=== PATIENT | male | born 1960 | race Caucasian/White ===

== ENCOUNTER 2018-09-20 00:20 | Observation (INO) ==
--- NOTE | 2018-09-20 00:28 | Emergency Department Note ---
Disposition Clinical Impression: Renal colic on right side Acute appendicitis Qualifiers: Acute appendicitis type: with localized peritonitis Appendicitis gangrene presence: without gangrene Appendicitis perforation presence: without perforati on Appendicitis abscess presence: without abscess Qualified Code(s): K35.30 - Acute appendicitis with localized peritonitis, without perforation or gangrene Disposition: Admitted As Inpatient Condition: Fair Referrals: NONE,PCP [Primary Care Provider] - Forms: ED Satisfaction Letter, Work/School Release Time of Disposition: 02:14 Abdominal Pain HPI - General Chief Complaint: ED Abdominal Pain Stated Complaint: Abd pain LL Time Seen by Provider: 09/20/18 00:21 Source: patient Mode of arrival: ambulatory Limitations: no limitations Nursing Notes Reviewed: Yes Vital Signs Reviewed: Yes - History of Present Illness HPI Narrative: 58-year-old male without significant past medical history, no medications no known drug allergies presenting for a 4 hour history of sudden onset severe left lower quadrant abdominal pain. The patient states that he was sitting down watching television at approximately 8 PM this evening when he had the sudden onset of severe left lower quadrant abdominal pain. Patient states for approximately one 8 months that he has been having intermittent severe right lower quadrant pain which has not been worked up by a physician. Patient states the pain is currently 10 out of 10 in nature and states that it makes him feel as though he is going to vomit. Patient denies any other concerns or complaints at this time. Upon my initial evaluation patient is sitting upright in hospital bed he is noticeably uncomfortable and in mild distress due to pain. Patient has trashcan from home sitting next to him, patient is otherwise not pale, not diaphoretic noncyanotic. We will initiate abdominal workup at this point with CT scan of the abdomen, abdominal labs Dilaudid and Zofran for the management of patient's symptoms. Patient verbalizes understanding and agreement this plan and is hemodynamically stable at this time. Pt Subjective Complaint: abdominal pain Onset (ago): hour(s) Consistency: constant Location: LLQ Pain Scale: 9 Quality: stabbing, sharp Radiation: none Migration to: no migration Improves with: nothing Worsens with: nothing Associated symptoms: Reports: nausea Treatments prior to arrival: none - Related Data Home Medications Medication Instructions Recorded Confirmed No Known Home Drugs 09/20/18 09/20/18 Allergies Allergy/AdvReac Type Severity Reaction Status Date / Time No Known Allergies Allergy Verified 09/20/18 00:47 Review of Systems: *See History of Present Illness for more detail Constitutional: Denies: fever, chills Cardiovascular: Denies: chest pain Respiratory: Denies: dyspnea, cough, hemoptysis Gastrointestinal: Admits: abdominal pain, nausea, denies: vomiting, diarrhea, constipation, hematemesis, melena, hematochezia Genitourinary: Denies: hematuria Musculoskeletal: Denies: back pain, neck pain Neurological: Denies: headache, weakness, lightheadedness/dizziness, numbness, paresthesias, difficulty with ambulation. Endocrine: Denies: fatigue All systems ED: reviewed and negative except as stated. Review of Systems: As Per HPI Abdominal Pain PMH - Past Medical History Medical history: Reports: no medical history Male Surgical History: Reports: no surgical history - Social History Smoking status: Never smoker Alcohol use: Reports: none Drug use: Reports: none Physical Exam Constitutional: No acute distress, [id number], engaged to conversation, speech is fluid, answers questions appropriately Neuro: GCS 15, no overt focal neurological deficits Head: Atraumatic, normocephalic Eyes: Pupils equal, round and reactive to light, no scleral icterus, no conjunctival injection Neck: Trachea midline without deviation. Anterior neck is supple without swelling. *Chest: Symmetric chest wall rise *Heart: Cardiac rhythm and rate are regular with S1 and S2 , no S3 or S4 appreciated, no murmurs, gallops, rubs, or clicks. *Lungs: Lungs are clear to auscultation bilaterally, without accessory muscle use or prolonged expiratory phase. No wheezes, rhonchi or stridor appreciated. Abdomen: Patient with pain to palpation in the left lower quadrant. Otherwise Abdomen is flat, soft to palpation, normal bowel sounds. No abdominal bruit auscultated. Non-distended, non-rigid, no organomegaly, no ascites appreciated. No pulsatile mass, no guarding to palpation in all four quadrants, no rebound Extremities: Normal capillary refill without evidence of pedal edema, joint swelling or erythema. Pulses/motor intact in all 4 extremities. Psychiatric exam: Patient displays a normal affect and mood for the environment. No overt signs of hallucination. Integumentary: warm, dry, intact, normal color. No rash, cyanosis, diaphoresis, erythema, or pallor - General Limitations: no limitations General appearance: alert, in no apparent distress Course Course Narrative: CT scan abdomen and pelvis, abdominal labs, Dilaudid Zofran IV fluids. - Reevaluation(s) Reevaluation #1: Patient's CT scan of the abdomen shows a left ureter 7 mm obstructing stone. There is also uncomplicated appendicitis noted on the CT scan. Patient with acute kidney injury to laboratory. Patient be admitted to surgical medicine service for management of appendicitis. Urology consult is also placed at this time. Vital Signs Temperature 98.2 F 09/20/18 00:24 Pulse Rate 74 09/20/18 00:24 Respiratory Rate 18 09/20/18 00:24 Blood Pressure 173/82 09/20/18 00:24 O2 Sat by Pulse Oximetry 98 09/20/18 00:24 Temperature 98.2 F 09/20/18 00:24 Pulse Rate 74 09/20/18 01:57 Respiratory Rate 20 09/20/18 01:57 Blood Pressure 155/102 09/20/18 01:57 O2 Sat by Pulse Oximetry 98 09/20/18 01:57 Oxygen Delivery Oxygen Delivery Room Air Abdominal Pain - MDM Narrative Medical decision making narrative: Patient's pain has been well managed here in the ED. Patient with findings of a 7 mm obstructing renal lithiasis in the left ureter, 11 mm appendix with inflammatory response suggestive of acute uncomplicated appendicitis. Patient admitted to surgical list service under Dr. Loy Lyons. The patient is hemodynamically stable time of admission. - Lab Data Lab results reviewed: Yes I reviewed the patient's lab results. Result diagrams: 09/20/18 00:37 09/20/18 00:37 Lab Results 09/20/18 09/20/18 09/20/18 Range/Units 00:33 00:37 00:37 WBC 10.5 (4.3-11.1) K/mcL RBC 4.93 (4.19-5.50) M/mcL Hgb 14.0 (12.9-16.9) g/dL Hct 42.2 (37.5-50.1) % MCV 85.6 (83.0-100.0) fL MCH 28.4 (28.0-33.3) pg MCHC 33.2 (31.6-35.5) g/dL RDW 12.4 (11.5-14.5) % Plt Count 235 (140-400) K/mcL MPV 9.5 (9.4-12.4) fL Immature Gran % 0.5 (0-4) % Seg Neutrophils % 82.6 % Lymphocytes % 9.2 % Monocytes % 6.2 % Eosinophils % 0.8 % Basophils % 0.7 % Neutrophils # 8.7 (1.6-8.9) K/mcL Lymphocytes # 1.0 (0.6-4.6) K/mcL Monocytes # 0.7 (0.0-1.3) K/mcL Eosinophils # 0.1 (0.0-0.6) K/mcL Basophils # 0.1 (0.0-0.2) K/mcL Sodium 141 (136-145) mEq/L Potassium 3.8 (3.5-5.1) mEq/L Chloride 104 (98-107) mEq/L Carbon Dioxide 27 (23-29) mEq/L BUN 22 H (6-20) mg/dL Creatinine 1.31 H (0.70-1.30) mg/dL Est GFR ( Amer) > 60 (> 60) Est GFR (Non-Af Amer) 57 L (> 60) BUN/Creatinine Ratio 17 (6-26) Glucose 132 H (70-105) mg/dL Calculated Osmolality 297 (280-300) Calcium 9.5 (8.6-10.3) mg/dL Total Bilirubin 0.5 (0.3-1.0) mg/dL Direct Bilirubin 0.1 (0.0-0.2) mg/dL Indirect Bilirubin 0.4 (0.0-1.2) mg/dL AST 17 (13-39) Units/L ALT 14 (7-52) Units/L Alkaline Phosphatase 86 (34-104) Units/L Serum Total Protein 7.6 (6.4-8.9) g/dL Albumin 4.7 (3.5-5.7) g/dL Globulin 2.9 (2.4-3.5) g/dL Albumin/Globulin Ratio 1.6 (1.1-2.2) Amylase 40 (29-103) Units/L Lipase 15 (11-82) Units/L Urine Color Yellow (Yellow) Urine Clarity Clear (Clear) Urine pH 5.0 (5.0-8.0) pH Units Ur Specific [place] 1.028 H (1.010-1.025) Urine Protein Trace (Neg-Trace) mg/dL Urine Glucose (UA) Normal (Normal) mg/dL Urine Ketones Negative (Negative) mg/dL Urine Blood Large H (Negative) Urine Nitrite Negative (Negative) Urine Bilirubin Negative (Negative) Urine Urobilinogen Normal (Normal) mg/dL Ur Leukocyte Esterase Negative (Negative) Urine Microscopic RBC 5-15 H (0-3) per hpf Urine Microscopic WBC 0-3 (0-3) per hpf Ur Squamous Epith Cells Few (None-Few) per lpf Urine Bacteria Few (None-Few) per hpf Urine Mucus Moderate H (Few) Urine Yeast Few H (None Seen) per hpf Ur Culture Indicated? YES A (NO) - Radiology Data Radiology results reviewed: Yes I reviewed the patient's radiology results. Abdomen/Pelvis CT 09/20/18 00:30 IMPRESSION: 1. Acute uncomplicated appendicitis. 2. 7 mm obstructive stone in the proximal left ureter leads to mild left hydronephrosis. D/ / Fabiola Newell MD / Fabiola Newell MD Interpreting Provider: Fabiola Newell MD
[2018-09-20] MEDS ORDERED: Ondansetron ODT 4 MG TAB.RAPDIS SL ONE (00:30)
[2018-09-20] MEDS ORDERED: *HR* HYDROmorphone (PF) 1 MG/ML SYRINGE IVP ONE ×2 (00:35→01:47)
--- NOTE | 2018-09-20 00:45 | Emergency Department Note ---
Disposition Clinical Impression: Renal colic on right side Disposition: Still a Patient Forms: ED Satisfaction Letter, Work/School Release Time of Disposition: 00:45 General Adult HPI - General Chief complaint: ED Abdominal Pain Stated complaint: Abd pain LL Time Seen by Provider: 09/20/18 00:21 Source: patient Limitations: no limitations Nursing Notes Reviewed: Yes Vital Signs Reviewed: Yes - History of Present Illness HPI Narrative: Attestation note: Patient was seen with the emergency medicine resident/nurse practitioner/physician personal assistant/transitional resident/medical student: Dr. Dameon Mason. I was present for the significant portions of the performance and interpretation of procedures and EKGs. I have personally performed a face to face evaluation on this patient. I have reviewed and agree with history and physical examination patient management and disposition. Briefly: 58-year-old male no prior history of stones right-sided flank pain writhing appears consistent with renal colic abdomen surgically benign he is hypertensive moderate distress getting IV antiemetics 1 mg IV Dilaudid getting a CT scan screening labs and urinalysis. Disposition pending Pain Scale: 9 - Related Data Allergies Allergy/AdvReac Type Severity Reaction Status Date / Time No Known Allergies Allergy Verified 09/20/18 00:21 Past Medical History - Past Medical History Medical history: Reports: no medical history - Social History Smoking Status: Never smoker Smokeless Tobacco Status: No Alcohol use: Reports: none Drug use: Reports: none Physical Exam - General Limitations: no limitations General appearance: alert, in no apparent distress Course Vital Signs Temperature 98.2 F 09/20/18 00:24 Pulse Rate 74 09/20/18 00:24 Respiratory Rate 18 09/20/18 00:24 Blood Pressure 173/82 09/20/18 00:24 O2 Sat by Pulse Oximetry 98 09/20/18 00:24 Temperature 98.2 F 09/20/18 00:24 Pulse Rate 74 09/20/18 00:24 Respiratory Rate 18 09/20/18 00:24 Blood Pressure 173/82 09/20/18 00:24 O2 Sat by Pulse Oximetry 98 09/20/18 00:24 Oxygen Delivery Oxygen Delivery Room Air
[2018-09-20 00:46] LABS: Bilirubin,Urine Negative (Negative); Blood,Urine Large (Negative); Clarity,Urine Clear (Clear); Color,Urine Yellow (Yellow); Glucose,Urine (UA) Normal (Normal); Ketones,Urine Negative (Negative); Leukocyte Esterase,Urine Negative (Negative); Nitrite,Urine Negative (Negative); Protein,Urine Trace mg/dL (Neg-Trace); Specific Gravity,Urine 1.028 (1.010-1.025); Urobilinogen,Urine Normal (Normal)
[2018-09-20 00:47] LABS: Basophils # 0.1 K/mcL (0.0-0.2); Basophils % 0.7 %; Eosinophils # 0.1 K/mcL (0.0-0.6); Eosinophils % 0.8 %; Hematocrit 42.2 % (37.5-50.1); Immature Granulocytes % 0.5 % (0-4); Lymphocytes % 9.2 %; Mean Corpuscular HGB Conc 33.2 g/dL (31.6-35.5); Mean Corpuscular Hemoglobin 28.4 pg (28.0-33.3); Mean Corpuscular Volume 85.6 fL (83.0-100.0); Mean Platelet Volume 9.5 fL (9.4-12.4); Monocytes # 0.7 K/mcL (0.0-1.3); Monocytes % 6.2 %; Neutrophils # 8.7 K/mcL (1.6-8.9); Platelet Count 235 K/mcL (140-400); Red Blood Count 4.93 M/mcL (4.19-5.50); Red Cell Distribution Width 12.4 % (11.5-14.5); Segmented Neutrophils % 82.6 %; White Blood Count 10.5 K/mcL (4.3-11.1)
[2018-09-20 00:57] LABS: Bacteria,Urine Few per hpf (None-Few); Mucus,Urine Moderate (Few); WBC,Urine 0-3 per hpf (0-3); Yeast,Urine Few per hpf (None Seen)
[2018-09-20 00:58] LABS: Squamous Epithelial Cell,Urine Few per lpf (None-Few)
[2018-09-20 01:09] LABS: Alanine Aminotransferase 14 Units/L (7-52); Albumin 4.7 g/dL (3.5-5.7); Albumin/Globulin Ratio 1.6 (1.1-2.2); Alkaline Phosphatase 86 Units/L (34-104); Amylase 40 Units/L (29-103); Aspartate Amino Transferase 17 Units/L (13-39); BUN/Creatinine Ratio 17 (6-26); Bilirubin,Direct 0.1 mg/dL (0.0-0.2); Bilirubin,Indirect 0.4 mg/dL (0.0-1.2); Bilirubin,Total 0.5 mg/dL (0.3-1.0); Blood Urea Nitrogen 22 mg/dL (6-20); Calcium 9.5 mg/dL (8.6-10.3); Carbon Dioxide 27 mEq/L (23-29); Chloride 104 mEq/L (98-107); Globulin 2.9 g/dL (2.4-3.5); Glucose 132 mg/dL (70-105); Lipase 15 Units/L (11-82); Osmolality,Calculated 297 (280-300); Potassium 3.8 mEq/L (3.5-5.1); Sodium 141 mEq/L (136-145); Total Protein 7.6 g/dL (6.4-8.9); eGFR For African Americans > 60 (> 60); eGFR For Non-African Americans 57 (> 60)
[2018-09-20] MEDS ORDERED: Ondansetron 4 MG/2 ML VIAL IVP PRN ×2 (03:02→15:43)
[2018-09-20] MEDS: 0.9 % Sodium Chloride 1,000 ML IVC SCH ×3 (03:23→16:20)
[2018-09-20] MEDS: Acetaminophen IV 1,000 MG/100 ML INFUS..BTL IVPB SCH ×4 (05:26→23:55)
[2018-09-20] MEDS: Piperacillin/Tazobactam 3.375 GM in 0.9 % Sodium Chloride Mini Bag 100 ML IVPB SCH ×4 (05:51→23:56)
--- NOTE | 2018-09-20 05:55 | Acute Care Surgery H&P ---
Date of Encounter: 09/20/18 Time of Encounter: 05:00 Assessment and Plan (1) Acute appendicitis Current Visit: Yes Status: Acute The assessment and plan as outlined above was discussed with the patient and/or family members who expressed understanding and agreement. All questions were answered. Pt's diagnosis of acute appendicitis is discussed. Laparoscopic Appendectomy is recommended. Procedure for the surgery, risks and benefits are discussed in detail. Possible known complications for Laparoscopic Appendectomy are bleeding, infection, ureter or bladder injury, small intestine or colon injury, stroke, DVT/PE, CO or . Pt understands these risks, which in this case are . Pt wishes to proceed with surgery as soon as possible. Informed consent is obtained. Pt condition is stable. Surgery is scheduled. IV abx ordered. Qualifiers: Acute appendicitis type: with localized peritonitis Appendicitis gangrene presence: without gangrene Appendicitis perforation presence: without perforation Appendicitis abscess presence: without abscess Qualified Code(s): K35.30 - Acute appendicitis with localized peritonitis, without perforation or gangrene History of Present Illness Chief complaint: abdominal pain HPI: This 58 y/o male pt presents to [facility] ED c/o severe abdominal pain. Pt reports pain is predominantly in LLQ rather then RLQ. Pain radiates to RLQ. However, pt also c/o pain in that was suprapubic. Pt reports pain has been present for 1-2 days. He states that the intermittent low grade pain worsened to the point of intolerence. That is when he presented to ED. Now, the pain is constant and severe RLQ. Pt reports nausea without vomiting. Pt denies hematemesis or coffee ground emesis. Pt reports flatus and BM. BM have become loose today. Pt denies hematochezia or melena. Reports decreased appetite. Denies fever. Past Med Surg Social Fam HX - Past Medical History Medical history: no medical history - Social History Smoking Status: Never smoker Smokeless Tobacco Status: No Alcohol use: none Drug use: none Medications and Allergies No Known Home Drugs 09/20/18 [History] Allergy/AdvReac Type Severity Reaction Status Date / Time No Known Allergies Allergy Verified 09/20/18 00:47 Review of Systems All systems PM: The remainder of the systems were reviewed and are negative - Constitutional as per HPI, anorexia, no excessive sweating, no fatigue, no fever(s), no night sweats, no weakness - EENT Nose, mouth and throat: dry mouth, no dysphagia, no nasal congestion, no nasal discharge, no sinus pain, no sinus pressure, no sore throat - Cardiovascular no chest pain, no diaphoresis, no dyspnea, no edema - Respiratory no cough, no dyspnea, no wheezing - Gastrointestinal abdominal pain, nausea, no bloating, no constipation, no diarrhea, no vomiting - Genitourinary flank pain, no dysuria, no urinary frequency - Musculoskeletal no back pain, no joint swelling, no limited range of motion, no neck pain - Integumentary no dry skin, no pruritus, no rash, no wounds, no jaundice - Neurological no confusion, no dizziness, no weakness - Psychiatric no anxiety, no confusion, no depression - Endocrine no fatigue - Hematologic/Lymphatic no easy bleeding, no easy bruising General Surgery Exam Initial Vital Signs Temp Pulse Resp BP Pulse Ox 98.2 F 74 18 173/82 98 09/20/18 00:24 09/20/18 00:24 09/20/18 00:24 09/20/18 00:24 09/20/18 00:24 - General physical appearance well nourished, no distress, moderate pain. negative: jaundice - Eyes PERRL, normal ocular movement. negative: icteric - ENT no congestion, dry mucosa. negative: nasal discharge - Neck no masses, trachea midline, no lymphadectomy, no venous distension - Respiratory normal respiratory effort, clear to auscultation - Cardiovascular Cardiovascular exam: Present: RRR. Absent: JVD - Abdomen Abdomen general surgery: Present: bowel sounds present, soft, tender. Absent: distended Abdominal Tenderness: Present: RLQ - Genitourinary Present: normal penis with no external lesions - Integumentary Integumentary general surgery: Present: warm and dry - Neurologic Present: CN 2-12 grossly intact, normal coordination - Musculoskeletal Present: normal posture - Psychiatric Psychiatric general surgery: Present: A&Ox3, appropriate Results - Labs 09/20/18 00:37 09/20/18 00:37 Abnormal lab results BUN 22 mg/dL (6-20) H 09/20/18 00:37 Creatinine 1.31 mg/dL (0.70-1.30) H 09/20/18 00:37 Est GFR (Non-Af Amer) 57 (> 60) L 09/20/18 00:37 Glucose 132 mg/dL (70-105) H 09/20/18 00:37 POC Glucose 126 mg/dL (70-99) H 09/20/18 05:02 Ur Specific [place] 1.028 (1.010-1.025) H 09/20/18 00:33 Urine Blood Large (Negative) H 09/20/18 00:33 Urine Microscopic RBC 5-15 per hpf (0-3) H 09/20/18 00:33 Urine Mucus Moderate (Few) H 09/20/18 00:33 Urine Yeast Few per hpf (None Seen) H 09/20/18 00:33 Ur Culture Indicated? YES (NO) A 09/20/18 00:33 Diabetes panel 09/20/18 Range/Units 00:37 Sodium 141 (136-145) mEq/L Potassium 3.8 (3.5-5.1) mEq/L Chloride 104 (98-107) mEq/L Carbon Dioxide 27 (23-29) mEq/L BUN 22 H (6-20) mg/dL Creatinine 1.31 H (0.70-1.30) mg/dL Glucose 132 H (70-105) mg/dL Calcium 9.5 (8.6-10.3) mg/dL AST 17 (13-39) Units/L ALT 14 (7-52) Units/L Alkaline Phosphatase 86 (34-104) Units/L Albumin 4.7 (3.5-5.7) g/dL Calcium panel 09/20/18 Range/Units 00:37 Calcium 9.5 (8.6-10.3) mg/dL Albumin 4.7 (3.5-5.7) g/dL Pituitary panel 09/20/18 Range/Units 00:37 Sodium 141 (136-145) mEq/L Potassium 3.8 (3.5-5.1) mEq/L Chloride 104 (98-107) mEq/L Carbon Dioxide 27 (23-29) mEq/L BUN 22 H (6-20) mg/dL Creatinine 1.31 H (0.70-1.30) mg/dL Glucose 132 H (70-105) mg/dL Calcium 9.5 (8.6-10.3) mg/dL Adrenal panel 09/20/18 Range/Units 00:37 Sodium 141 (136-145) mEq/L Potassium 3.8 (3.5-5.1) mEq/L Chloride 104 (98-107) mEq/L Carbon Dioxide 27 (23-29) mEq/L BUN 22 H (6-20) mg/dL Creatinine 1.31 H (0.70-1.30) mg/dL Glucose 132 H (70-105) mg/dL Calcium 9.5 (8.6-10.3) mg/dL Total Bilirubin 0.5 (0.3-1.0) mg/dL AST 17 (13-39) Units/L ALT 14 (7-52) Units/L Alkaline Phosphatase 86 (34-104) Units/L Albumin 4.7 (3.5-5.7) g/dL All other labs normal. - Imaging Abdominal x-ray: image reviewed (acute appendicitis) CT scan - chest: image reviewed
--- NOTE | 2018-09-20 07:00 | Urology - Consult Note ---
Date of Encounter: 09/20/18 Time of Encounter: 06:58 - Assessment and Plan (1) Ureteral stone with hydronephrosis Current Visit: Yes Status: Acute Assessment and plan: I personally reviewed the CT scan and agree that there is a 7-8 mm proximal left ureteral calculi with hydronephrosis and stranding in the kidney. This is likel y the source of his acute pain. Patient is scheduled to undergo a laparoscopic appendectomy today. We will place a ureteral stent during the procedure. Planned procedure is a cystoscopy with left retrograde pyelogram and left ureteral stent placement. Patient understands the indication for the procedure. He will require a staged ESWL or ureteroscopic stone extraction. Patient understands the risks the procedure which includes injury to the urinary tract, infection, stent discomfort, and need for follow-up surgery (2) Acute renal insufficiency Current Visit: Yes Status: Acute Assessment and plan: Likely from the obstructing ureteral stone. Should resolve with the stent. Avoid NSAIDs (3) Flank pain Current Visit: Yes Status: Acute Assessment and plan: Hopefully will improve with ureteral stent placement Urology CN:KIMBERLY Consult date: 09/20/18 Reason for consult Urology: Hydronephrosis History of present illness: 58-year-old male with no history of kidney stones. Presents to emergency room with severe left flank pain. He states he has been experiencing right-sided abdominal pain for at least a few weeks. No high fever. He went to the emergency room because he was not sure what the left flank discomfort was from. No gross hematuria. Positive nausea. Denies family history of kidney stones. CT scan revealed acute appendicitis and a left proximal 7 mm obstructing ureteral calculi Past Med Surg Social Fam HX - Past Medical History Medical history: no medical history - Social History Smoking Status: Never smoker Smokeless Tobacco Status: No Alcohol use: none Drug use: none Medications and Allergies No Known Home Drugs 09/20/18 [History] Allergy/AdvReac Type Severity Reaction Status Date / Time No Known Allergies Allergy Verified 09/20/18 00:47 Review of Systems - Constitutional fatigue, no fever(s) - EENT Nose, mouth and throat: no dizziness - Cardiovascular no chest pain - Respiratory no cough - Gastrointestinal abdominal pain, nausea - Genitourinary flank pain, no hematuria - Musculoskeletal back pain - Integumentary no erythema - Neurological no confusion - Psychiatric no anxiety - Hematologic/Lymphatic no easy bleeding - Allergic/Immunologic no throat swelling Exam Initial Vital Signs Temp Pulse Resp BP Pulse Ox 98.2 F 74 18 173/82 98 09/20/18 00:24 09/20/18 00:24 09/20/18 00:24 09/20/18 00:24 09/20/18 00:24 - General physical appearance Present: well developed, no distress, moderate pain - Eyes Present: PERRL, conjunctiva is clear - ENT Present: normal nares, no congestion - Neck Present: no masses, no lymphadenopathy - Respiratory Present: normal respiratory effort - Cardiovascular Cardiovascular exam IM: RRR - Abdomen Abdomen: Present: soft, tender, suprapubic tenderness - Integumentary Present: no rash, no growths, no abnormal pigmentation - Neurologic Present: normal coordination. Absent: disoriented, confused - Additional Findings Significant left CVA tenderness Urology Results - Labs 09/20/18 00:37 09/20/18 00:37 Abnormal lab results BUN 22 mg/dL (6-20) H 09/20/18 00:37 Creatinine 1.31 mg/dL (0.70-1.30) H 09/20/18 00:37 Est GFR (Non-Af Amer) 57 (> 60) L 09/20/18 00:37 Glucose 132 mg/dL (70-105) H 09/20/18 00:37 POC Glucose 126 mg/dL (70-99) H 09/20/18 05:02 Ur Specific [place] 1.028 (1.010-1.025) H 09/20/18 00:33 Urine Blood Large (Negative) H 09/20/18 00:33 Urine Microscopic RBC 5-15 per hpf (0-3) H 09/20/18 00:33 Urine Mucus Moderate (Few) H 09/20/18 00:33 Urine Yeast Few per hpf (None Seen) H 09/20/18 00:33 Ur Culture Indicated? YES (NO) A 09/20/18 00:33 Diabetes panel 09/20/18 Range/Units 00:37 Sodium 141 (136-145) mEq/L Potassium 3.8 (3.5-5.1) mEq/L Chloride 104 (98-107) mEq/L Carbon Dioxide 27 (23-29) mEq/L BUN 22 H (6-20) mg/dL Creatinine 1.31 H (0.70-1.30) mg/dL Glucose 132 H (70-105) mg/dL Calcium 9.5 (8.6-10.3) mg/dL AST 17 (13-39) Units/L ALT 14 (7-52) Units/L Alkaline Phosphatase 86 (34-104) Units/L Albumin 4.7 (3.5-5.7) g/dL Calcium panel 09/20/18 Range/Units 00:37 Calcium 9.5 (8.6-10.3) mg/dL Albumin 4.7 (3.5-5.7) g/dL Pituitary panel 09/20/18 Range/Units 00:37 Sodium 141 (136-145) mEq/L Potassium 3.8 (3.5-5.1) mEq/L Chloride 104 (98-107) mEq/L Carbon Dioxide 27 (23-29) mEq/L BUN 22 H (6-20) mg/dL Creatinine 1.31 H (0.70-1.30) mg/dL Glucose 132 H (70-105) mg/dL Calcium 9.5 (8.6-10.3) mg/dL Adrenal panel 09/20/18 Range/Units 00:37 Sodium 141 (136-145) mEq/L Potassium 3.8 (3.5-5.1) mEq/L Chloride 104 (98-107) mEq/L Carbon Dioxide 27 (23-29) mEq/L BUN 22 H (6-20) mg/dL Creatinine 1.31 H (0.70-1.30) mg/dL Glucose 132 H (70-105) mg/dL Calcium 9.5 (8.6-10.3) mg/dL Total Bilirubin 0.5 (0.3-1.0) mg/dL AST 17 (13-39) Units/L ALT 14 (7-52) Units/L Alkaline Phosphatase 86 (34-104) Units/L Albumin 4.7 (3.5-5.7) g/dL All other labs normal. Consult Discharge Plan - Plan Referrals: NONE,PCP [Primary Care Provider] -
--- NOTE | 2018-09-20 11:50 | Anesthesia Evaluation PreOp ---
Date of Encounter: 09/20/18 Time of Encounter: 12:25 - Past History Planned Operation: lap appy, ureteral stent placement Cardiac History: Denies any Significant Hx Pulmonary History: Denies Any Significant HX VENEER SORTER History: Denies Any Significant HX Other Medical History: Denies Any Significant HX Anesthesia History: No Prior Anesthetic Complications Alcohol Use: none Drug use: none Medications and Allergies No Known Home Drugs 09/20/18 [History] Allergy/AdvReac Type Severity Reaction Status Date / Time No Known Allergies Allergy Verified 09/20/18 00:47 - Meds/Allergy Pre-op Review Medications Reviewed: Yes Allergies Reviewed: Yes Beta Blockers on Current Med List: No Anesthesia Results - Labs 09/20/18 00:37 09/20/18 00:37 Anesthesia Exam Selected Entries 09/20/18 11:44 Temperature 99.7 F H Pulse Rate 85 Respiratory Rate 16 Blood Pressure 129/74 O2 Sat by Pulse Oximetry 97 Weight: 90 kg. BMI 29 NPO (# of Hours): over 8 hours - HEENT Pupil (Motor): Pupils equal Mallampati: II Teeth: Normal Oral Opening: Greater than 3 - Cardiac Rhythm: Regular Murmur: None - Pulmonary Breath Sounds: bilateral Clear Respiratory Effort: Symmetrical Anesthesia Assess/Plan ASA Score: 1, E Level of consciousness: Cooperative Anesthetic Plan: General Monitoring Plan: Standard Monitors Recovery Plan: PACU (Discussed GA, risks. Agreed to proceed.)
[2018-09-20] MEDS ORDERED: Acetaminophen IV 1,000 MG/100 ML INFUS..BTL ONE (13:04)
[2018-09-20] MEDS ORDERED: *HR* Midazolam HCl 2 MG/2 ML VIAL ONE (13:10)
[2018-09-20] MEDS ORDERED: *HR* FentaNYL (PF) 100 MCG/2 ML VIAL ONE (13:10)
[2018-09-20] MEDS ORDERED: *HR* Propofol 200 MG/20 ML VIAL IVP ONE (13:10)
[2018-09-20] MEDS ORDERED: Lidocaine -MPF 2% 2 ML VIAL ONE (13:10)
[2018-09-20] MEDS ORDERED: *HR* Rocuronium Bromide 50 MG/5 ML VIAL ONE (13:10)
[2018-09-20] MEDS ORDERED: Isovue-300 50 ML VIAL ONE (13:27)
[2018-09-20] MEDS ORDERED: Bupivacaine/EPI 1:200k 0.25%PF 30 ML VIAL ONE (13:27)
[2018-09-20] MEDS ORDERED: Bupivacaine/EPI 1:200k 0.5%PF 30 ML VIAL ONE (13:30)
[2018-09-20] MEDS ORDERED: Dexamethasone 4 MG/ML VIAL ONE (13:47)
[2018-09-20] MEDS ORDERED: Ondansetron 4 MG/2 ML VIAL ONE (13:47)
[2018-09-20] MEDS ORDERED: Ketorolac 30 MG/ML VIAL ONE (13:48)
--- NOTE | 2018-09-20 14:16 | Operative Note ---
Date of procedure: 09/20/18 Pre-op diagnosis: 7 mm left proximal ureteral calculi Post-op diagnosis: same Procedure: cystoscopy left retrograde pyelogram and JJ stent placement Anesthesia: GETA Surgeon: Samy Cowan Was there an veterinary assistant present: No Estimated blood loss (cc): 0 Specimen: none Condition: stable Disposition: PACU Procedure in Detail: PROCEDURE IN DETAIL: Patient was taken back to the operating room, positioned supine on the operating table. Anesthesia was applied without complication. They were moved into dorsal lithotomy. Careful attention was maintained to cushion all pressure points for patient's safety. They were prepped and draped in sterile fashion. Time-out was performed with the proper patient and procedure. A 17-Swiss rigid cystoscope was inserted into the bladder without difficulty. Systematic examination of bladder revealed no abnormalities. The ureteral orifice was cannulated using a 5-Swiss ureteral Catheter and a retrograde pyelogram was performed using Isovue. A filling defect was identified which corresponded to the stone in the proximal ureter. A zip wire was passed followed by a 4.8 x 26 ureteral stent. The stent was passed without resistance and appeared in good position based on fluoroscopy. Will arrange outpatient ESWL to definitively manage the stone
[2018-09-20] MEDS ORDERED: Lidocaine HCL 4 ML Topical Solution (Laryng-O-Jet Kit Sterile Pak) TP ONE (14:30)
[2018-09-20] MEDS ORDERED: Neostigmine Methylsulfate 3 MG/3 ML SYRINGE ONE (14:48)
[2018-09-20] MEDS ORDERED: *HR* HYDROMORPHONE 2 MG/ML VIAL ONE (14:53)
--- NOTE | 2018-09-20 14:59 | Operative Note ---
Date of procedure: 09/20/18 Pre-op diagnosis: acute appendicitis Post-op diagnosis: same Procedure: Laparoscopic appendectomy Anesthesia: GETA Surgeon: Stevo Shipley Was there an stonecutter assistant present: No Estimated blood loss (cc): 12 Specimen: appendix Condition: stable Disposition: PACU Procedure in Detail: Date of surgery: 09/20/18 After properly identifying the patient, the patient is brought to the operating room and placed in the supine position. The patient was already intubated due to having a cystoscopy with ureteral stent placement. The patient's abdomen was prepped and draped in a normal sterile fashion. A timeout was performed noting the patient's name and type of procedure to be performed. A subumbilical incision with an 11 blade scalpel was made down to the level of the rectus fascia. Once the rectus fascia was encountered and incised a 12 mm port was placed through the incision and the abdomen was insufflated with carbon dioxide. A laparoscopic camera was placed through the port which showed no injury to the intra-abdominal organs upon entry. A suprapubic 5 mm port and a left lower quadrant 5 mm port were then placed under direct camera visualization. The patient was placed in a Trendelenburg position and the right lower quadrant was examined. The cecum was retracted medially and the lateral sidewall attachments were dissected free with Bovie cauterization. The terminal ileum could be identified but initially the appendix could not be easily identified. Further examination of the lateral and posterior aspect of the cecum demonstrated that the appendix was near retrocecal and actually extended superiorly up towards the hepatic flexure with surrounding acute on chronic signs of inflammation. The appendix was then grasped and careful dissection was performed surrounding the appendix between the appendix and the adhesions were performed with a laparoscopic LigaSure and Bovie cauterization. This allowed for further dissection of the mesentery between the appendix and cecum to allow for exposure of the base of the appendix. The appendix was then transected laparoscopically with a KEILY stapler. The appendix was then removed from the abdomen via an Endobag and the right lower quadrant was examined which demonstrated maintenance of hemostasis. The right lower quadrant and pelvis were then copiously irrigated with normal saline solution and reinspection of the staple line demonstrated maintenance of hemostasis. All ports are then removed from the abdomen after the abdomen was desufflated. The rectus fascia for the subumbilical incision was reapproximated with a [id number] 0 Vicryl suture. Subcutaneous tissue was reapproximated with a 3-0 Vicryl suture and the epidermal and dermal layers for the remaining incisions were closed with 4-0 Monocryl sutures. Needle, sponge, and instrument counts were correct 2 and the incisions were covered with Steri-Strips and Band-Aids. The patient was aroused from IV sedation, extubated in the operating room without complication, and transported to the recovery room stable condition.
--- NOTE | 2018-09-20 15:41 | Anesthesia Evaluation Post Op ---
Date of Encounter: 09/20/18 Time of Encounter: 15:25 - Discharge PostOp Status: Transfer Patient to floor (Patient's vital signs have been reviewed. Patient is stable postoperatively and has adequately recovered from anesthesia. Patient is determined to have stable airway patency and respiratory function including respiratory rate and oxygen saturation. Patient has a stable heart rate, blood pressure and adequate hydration. Patients mental status is acceptable. Patients temperature is appropriate. Pain and nausea are adequately controlled)
[2018-09-20] MEDS ORDERED: Morphine Sulfate Oral CONC 10 MG/0.5 ML ORAL.SYG SL PRN (15:43)
[2018-09-20] MEDS: *HR* Heparin 5,000 UNIT/ML VIAL SQ SCH (18:03)
[2018-09-21] MEDS: 0.9 % Sodium Chloride 1,000 ML IVC SCH (03:41)
[2018-09-21] MEDS: Acetaminophen IV 1,000 MG/100 ML INFUS..BTL IVPB SCH (05:13)
[2018-09-21] MEDS: *HR* Heparin 5,000 UNIT/ML VIAL SQ SCH (05:17)
[2018-09-21] MEDS: Piperacillin/Tazobactam 3.375 GM in 0.9 % Sodium Chloride Mini Bag 100 ML IVPB SCH (07:53)
[2018-09-21 08:05] LABS: Basophils % 0.2 %; Hematocrit 38.1 % (37.5-50.1); Immature Granulocytes % 0.4 % (0-4); Lymphocytes # 0.7 K/mcL (0.6-4.6); Lymphocytes % 5.7 %; Mean Corpuscular HGB Conc 32.3 g/dL (31.6-35.5); Mean Corpuscular Hemoglobin 28.2 pg (28.0-33.3); Mean Corpuscular Volume 87.4 fL (83.0-100.0); Mean Platelet Volume 10.1 fL (9.4-12.4); Monocytes # 0.8 K/mcL (0.0-1.3); Platelet Count 209 K/mcL (140-400); Red Blood Count 4.36 M/mcL (4.19-5.50); Red Cell Distribution Width 12.4 % (11.5-14.5); Segmented Neutrophils % 86.7 %; White Blood Count 11.5 K/mcL (4.3-11.1)
[2018-09-21 08:09] LABS: Hemoglobin 12.3 g/dL (12.9-16.9)
[2018-09-21 08:28] LABS: BUN/Creatinine Ratio 15 (6-26); Blood Urea Nitrogen 21 mg/dL (6-20); Calcium 8.6 mg/dL (8.6-10.3); Carbon Dioxide 27 mEq/L (23-29); Chloride 104 mEq/L (98-107); Glucose 127 mg/dL (70-105); Osmolality,Calculated 291 (280-300); Potassium 3.9 mEq/L (3.5-5.1); Sodium 138 mEq/L (136-145); eGFR For African Americans > 60 (> 60); eGFR For Non-African Americans 53 (> 60)
--- NOTE | 2018-09-21 08:30 | AcuteCareSurgery Progress Note ---
Date of Encounter: 09/21/18 Time of Encounter: 08:28 - Assessment and Plan (1) Acute appendicitis Status: Acute Patient underwent a laparoscopic appendectomy with ureteral stent placement (by Urology) yesterday. Doing well. Will discharge home today. Qualifiers: Acute appendicitis type: with localized peritonitis Appendicitis gangrene presence: without gangrene Appendicitis perforation presence: without perforation Appendicitis abscess presence: without abscess Qualified Code(s): K35.30 - Acute appendicitis with localized peritonitis, without perforation or gangrene Subjective Patient reports: other (Patient states he feels much better today compared to yesterday. Mild blood in urine. Mild lower abdominal tenderness. No nausea or vomiting.) Objective Vital Signs - Last 8 Hours Temp Pulse Resp BP Pulse Ox 09/21/18 08:02 96 09/21/18 06:40 98.3 F 68 17 128/71 96 09/21/18 04:17 98.2 F 72 18 131/76 97 Intake and Output 09/20/18 09/21/18 09/21/18 23:59 07:59 15:59 Intake Total 200 / 1500 1300 / 1300 Output Total 300 / 312 750 / 750 Balance -100 / 1188 550 / 550 Intake: IV Fluids 200 / 1500 1300 / 1300 0.9 % Sodium Chloride 1,000 ML 1000 / 1000 @ 80 mls/hr IVC .[id number] [facility] Rx #:[id number] Ofirmev 1,000 mg/100 ml 1,000 100 / 100 200 / 200 mg In 100 ml @ 400 mls/hr IVPB Q6HR [facility] Rx#:[id number] Zosyn 3.375 GM In 0.9 % Sodium 100 / 100 100 / 100 Chloride (Mini-Bag +) 100 ML @ 25 mls/hr IVPB Q8HR [facility] Rx#: [id number] Output: Urine 300 / 300 750 / 750 Other: Weight 98.6 kg Patient Weight 09/21/18 23:59 Weight 98.6 kg - General physical appearance well nourished, no distress - Abdomen Abdomen: Present: soft, tender (Mild incisional pain with palpation. Band-Aids in place.) - Labs 09/21/18 07:41 09/21/18 07:41 Diabetes panel 09/21/18 Range/Units 07:41 Sodium 138 (136-145) mEq/L Potassium 3.9 (3.5-5.1) mEq/L Chloride 104 (98-107) mEq/L Carbon Dioxide 27 (23-29) mEq/L BUN 21 H (6-20) mg/dL Creatinine 1.39 H (0.70-1.30) mg/dL Glucose 127 H (70-105) mg/dL Calcium 8.6 (8.6-10.3) mg/dL Calcium panel 09/21/18 Range/Units 07:41 Calcium 8.6 (8.6-10.3) mg/dL Pituitary panel 09/21/18 Range/Units 07:41 Sodium 138 (136-145) mEq/L Potassium 3.9 (3.5-5.1) mEq/L Chloride 104 (98-107) mEq/L Carbon Dioxide 27 (23-29) mEq/L BUN 21 H (6-20) mg/dL Creatinine 1.39 H (0.70-1.30) mg/dL Glucose 127 H (70-105) mg/dL Calcium 8.6 (8.6-10.3) mg/dL Adrenal panel 09/21/18 Range/Units 07:41 Sodium 138 (136-145) mEq/L Potassium 3.9 (3.5-5.1) mEq/L Chloride 104 (98-107) mEq/L Carbon Dioxide 27 (23-29) mEq/L BUN 21 H (6-20) mg/dL Creatinine 1.39 H (0.70-1.30) mg/dL Glucose 127 H (70-105) mg/dL Calcium 8.6 (8.6-10.3) mg/dL Consult Discharge Plan - Plan Instructions: Appendicitis (DC), Laparoscopic Appendectomy (DC) Additional Instructions: General Surgical Discharge Instructions 1. No pushing, pulling, or lifting greater than 15 lbs for 2-4 weeks (depending upon procedure). 2. You may remove your dressings and shower beginning today, but no tub baths, soaking, or swimming for 2 weeks. 3. No driving for two weeks unless otherwise specified and then you may resume driving when you are off narcotics and are safe to react in a car. 4. Take ibuprofen every 8 hours for discomfort. If this does not relieve discomfort, you may take the as needed Percocet. Eat a small snack with pain medication as this will help reduce the risk of nausea. Take narcotics as directed. Do not take more narcotics then directed and do not share your narcotics with any other person. Do not drink alcohol while on narcotics. You can take the Zofran/ondansetron if needed for nausea or with a dose of narcotics to prevent nausea. 5. Take stool softeners (Colace) or a water based laxative (Miralax) while taking narcotics. You may hold for loose stools. 6. Report any fevers greater than 100.5F, increase abdominal discomfort, drainage that looks like pus, increased redness or pain at the surgical site, or any vomiting. 7. Report any pain in the calves, shortness of breath, or rapid heartbeat. 8. Follow-up in the office as directed. 9. If you were prescribed antibiotics, do not stop them without talking to your provider. Referrals: Odette Mccarthy CNP [Advanced Practice Nurse] - 09/30/18 2:15 pm NONE,PCP [Primary Care Provider] - Prescriptions: Docusate Sodium [Colace] 100 mg PO BID PRN #30 capsule PRN Reason: Contstipation Ibuprofen 800 mg PO Q8H PRN #30 tablet PRN Reason: Postsurgical pain Polyethylene Glycol 3350 [MiraLAX Powder Bulk 17.9 Oz] 1 scoop PO DAILY 30 Days #510 gm OxyCODONE/APAP 5/325 [Percocet 5/325 MG] 1 each PO Q6HR PRN 7 Days #28 tablet PRN Reason: Pain Ondansetron ODT [Zofran ODT] 4 mg SL Q4HR PRN #15 tab.rapdis PRN Reason: Postsurgical nausea
--- NOTE | 2018-09-21 08:32 | Discharge Summary ---
Orders not resulted at time of discharge: Pending orders 09/20/18 14:53 Surgical Pathology [PTH] Routine Date of Encounter: 09/21/18 Time of Encounter: 08:30 - Discharge Diagnosis (1) Acute appendicitis Priority: Primary Status: Acute Qualifiers: Acute appendicitis type: with localized peritonitis Appendicitis gangrene presence: without gangrene Appendicitis perforation presence: without perforation Appendicitis abscess presence: without abscess Qualified Code(s): K35.30 - Acute appendicitis with localized peritonitis, without perforation or gangrene (2) Ureteral stone with hydronephrosis Priority: Primary Status: Acute General Surgery Exam Initial Vital Signs Temp Pulse Resp BP Pulse Ox 98.2 F 74 18 173/82 98 09/20/18 00:24 09/20/18 00:24 09/20/18 00:24 09/20/18 00:24 09/20/18 00:24 - Eyes PERRL, normal ocular movement - Abdomen Abdomen general surgery: Present: soft, tender (mild incisional pain.) - Hospital Course Hospital course: Mr. Rico is a 58 year old male was in himself to [facility] with complaints of left-sided flank pain as well as right lower quadrant abdominal pain. CT scan study showed evidence of acute appendicitis as well as a ureteral stone with mild hydronephrosis. Urology was consulted and the patient was brought to the operating room on the same day for a cystoscopy with left-sided ureteral then placement as well as a laparoscopic appendectomy. The patient tolerated the procedure and noted improvement in his pain symptoms. Because of his ability to tolerate an oral diet he was discharged home on postoperative day 1 with instructions to follow-up with [place] [facility] 2 weeks. Patient already has a set appointment to follow-up with urology. Time spent discussing smoking cessation with patient: 3 to 10 minutes - Time Spent with Patient Total time spent providing and/or coordinating discharge services: Less than 30 minutes Specific discharge activities: No heavy lifting greater than 15lbs for two weeks. May remove Band-Aids in two days. May shower in two days. - Discharge Medications Prescriptions: New Docusate Sodium [Colace] 100 mg PO BID PRN #30 capsule PRN Reason: Contstipation Ibuprofen 800 mg PO Q8H PRN #30 tablet PRN Reason: Postsurgical pain Polyethylene Glycol 3350 [MiraLAX Powder Bulk 17.9 Oz] 1 scoop PO DAILY 30 Days #510 gm OxyCODONE/APAP 5/325 [Percocet 5/325 MG] 1 each PO Q6HR PRN 7 Days #28 tablet PRN Reason: Pain Ondansetron ODT [Zofran ODT] 4 mg SL Q4HR PRN #15 tab.rapdis PRN Reason: Postsurgical nausea Home Medications: Docusate Sodium [Colace] 100 mg PO BID PRN #30 capsule 09/20/18 [Rx] Ibuprofen 800 mg PO Q8H PRN #30 tablet 09/20/18 [Rx] Ondansetron ODT [Zofran ODT] 4 mg SL Q4HR PRN #15 tab.rapdis 09/20/18 [Rx] OxyCODONE/APAP 5/325 [Percocet 5/325 MG] 1 each PO Q6HR PRN 7 Days #28 tablet 09/20/18 [Rx] Polyethylene Glycol 3350 [MiraLAX Powder Bulk 17.9 Oz] 1 scoop PO DAILY 30 Days #510 gm 09/20/18 [Rx] Allergies/Adverse Reactions: Allergy/AdvReac Type Severity Reaction Status Date / Time No Known Allergies Allergy Verified 09/20/18 00:47 Date of admission: 09/20/18 02:25 Primary care physician: PCP NONE Consults: 09/20/18 02:05 Consult to Urology [CONS] Stat Consulting Provider: Kaila Begum Reason for Consult: 7mm stone in left ureter Time Notified: 02:05 Call Completed: No 09/20/18 02:11 Consult to Surgery [CONS] Stat Consulting Provider: Beverly Browne Reason for Consult: Appendicitis Time Notified: 02:12 Call Completed: Yes Discharging clinician: Stevo Shipley Anticipated date of discharge: 09/21/18 Labs on day of discharge: Labs from last 24 hours 09/21/18 09/21/18 09/20/18 07:41 07:41 11:45 WBC 11.5 H RBC 4.36 Hgb 12.3 L D Hct 38.1 MCV 87.4 MCH 28.2 MCHC 32.3 RDW 12.4 Plt Count 209 MPV 10.1 Immature Gran % 0.4 Seg Neutrophils % 86.7 Lymphocytes % 5.7 Monocytes % 7.0 Eosinophils % 0.0 Basophils % 0.2 Neutrophils # 10.0 H Lymphocytes # 0.7 Monocytes # 0.8 Eosinophils # 0.0 Basophils # 0.0 Sodium 138 Potassium 3.9 Chloride 104 Carbon Dioxide 27 BUN 21 H Creatinine 1.39 H Est GFR ( Amer) > 60 Est GFR (Non-Af Amer) 53 L BUN/Creatinine Ratio 15 Glucose 127 H POC Glucose 110 H Calculated Osmolality 291 Calcium 8.6 - Impressions ITS Impressions Retrograde Pyelogram 09/20/18 00:00 IMPRESSION: Intraprocedural fluoroscopic spot images as above. See separate procedure report for more information. D/ / Noble Harrington MD / Noble Harrington MD Interpreting Provider: Noble Harrington MD Abdomen/Pelvis CT 09/20/18 00:30 IMPRESSION: 1. Acute uncomplicated appendicitis. 2. 7 mm obstructive stone in the proximal left ureter leads to mild left hydronephrosis. D/ / Fabiola Newell MD / Fabiola Newell MD Interpreting Provider: Fabiola Newell MD - Patient Status Disposition: Home, Self-Care Condition: Good Overall status at discharge: patient is progressing back to baseline - Discharge Instructions Instructions: Appendicitis (DC), Laparoscopic Appendectomy (DC) Follow Up With: Odette Mccarthy [employer] [Advanced Practice Nurse] - 09/30/18 2:15 pm NONE,PCP [Primary Care Provider] - Additional Instructions: General Surgical Discharge Instructions 1. No pushing, pulling, or lifting greater than 15 lbs for 2-4 weeks (depending upon procedure). 2. You may remove your dressings and shower beginning today, but no tub baths, soaking, or swimming for 2 weeks. 3. No driving for two weeks unless otherwise specified and then you may resume driving when you are off narcotics and are safe to react in a car. 4. Take ibuprofen every 8 hours for discomfort. If this does not relieve discomfort, you may take the as needed Percocet. Eat a small snack with pain medication as this will help reduce the risk of nausea. Take narcotics as directed. Do not take more narcotics then directed and do not share your narcotics with any other person. Do not drink alcohol while on narcotics. You can take the Zofran/ondansetron if needed for nausea or with a dose of narcotics to prevent nausea. 5. Take stool softeners (Colace) or a water based laxative (Miralax) while taking narcotics. You may hold for loose stools. 6. Report any fevers greater than 100.5F, increase abdominal discomfort, drainage that looks like pus, increased redness or pain at the surgical site, or any vomiting. 7. Report any pain in the calves, shortness of breath, or rapid heartbeat. 8. Follow-up in the office as directed. 9. If you were prescribed antibiotics, do not stop them without talking to your provider.
[2018-09-21] MEDS ORDERED: Pantoprazole 40 MG VIAL IVP SCH (09:00)
--- NOTE | 2018-09-21 09:59 | Urology Progress Note ---
Date of Encounter: 09/21/18 Time of Encounter: 09:58 - Assessment and Plan (1) Ureteral stone with hydronephrosis Current Visit: Yes Status: Acute Assessment and plan: Resolved with ureteral stent placement. Plan for outpatient ESWL and stent removal. My office will contact patient. Okay to use [id number] AZO for stent discomfort. Minimize NSAID use because of renal insufficiency (2) Acute renal insufficiency Current Visit: Yes Status: Acute (3) Flank pain Current Visit: Yes Status: Acute Progress Note Narrative: Patient states he feels better. Only mild stent discomfort. Objective Initial Vital Signs Temp Pulse Resp BP Pulse Ox 98.2 F 74 18 173/82 98 09/20/18 00:24 09/20/18 00:24 09/20/18 00:24 09/20/18 00:24 09/20/18 00:24 - General physical appearance Present: no distress, no pain - Labs 09/21/18 07:41 09/21/18 07:41 Diabetes panel 09/21/18 Range/Units 07:41 Sodium 138 (136-145) mEq/L Potassium 3.9 (3.5-5.1) mEq/L Chloride 104 (98-107) mEq/L Carbon Dioxide 27 (23-29) mEq/L BUN 21 H (6-20) mg/dL Creatinine 1.39 H (0.70-1.30) mg/dL Glucose 127 H (70-105) mg/dL Calcium 8.6 (8.6-10.3) mg/dL Calcium panel 09/21/18 Range/Units 07:41 Calcium 8.6 (8.6-10.3) mg/dL Pituitary panel 09/21/18 Range/Units 07:41 Sodium 138 (136-145) mEq/L Potassium 3.9 (3.5-5.1) mEq/L Chloride 104 (98-107) mEq/L Carbon Dioxide 27 (23-29) mEq/L BUN 21 H (6-20) mg/dL Creatinine 1.39 H (0.70-1.30) mg/dL Glucose 127 H (70-105) mg/dL Calcium 8.6 (8.6-10.3) mg/dL Adrenal panel 09/21/18 Range/Units 07:41 Sodium 138 (136-145) mEq/L Potassium 3.9 (3.5-5.1) mEq/L Chloride 104 (98-107) mEq/L Carbon Dioxide 27 (23-29) mEq/L BUN 21 H (6-20) mg/dL Creatinine 1.39 H (0.70-1.30) mg/dL Glucose 127 H (70-105) mg/dL Calcium 8.6 (8.6-10.3) mg/dL Consult Discharge Plan - Plan Instructions: Appendicitis (DC), Laparoscopic Appendectomy (DC) Additional Instructions: General Surgical Discharge Instructions 1. No pushing, pulling, or lifting greater than 15 lbs for 2-4 weeks (depending upon procedure). 2. You may remove your dressings and shower beginning today, but no tub baths, soaking, or swimming for 2 weeks. 3. No driving for two weeks unless otherwise specified and then you may resume driving when you are off narcotics and are safe to react in a car. 4. Take ibuprofen every 8 hours for discomfort. If this does not relieve discomfort, you may take the as needed Percocet. Eat a small snack with pain medication as this will help reduce the risk of nausea. Take narcotics as directed. Do not take more narcotics then directed and do not share your narcotics with any other person. Do not drink alcohol while on narcotics. You can take the Zofran/ondansetron if needed for nausea or with a dose of narcotics to prevent nausea. 5. Take stool softeners (Colace) or a water based laxative (Miralax) while taking narcotics. You may hold for loose stools. 6. Report any fevers greater than 100.5F, increase abdominal discomfort, drainage that looks like pus, increased redness or pain at the surgical site, or any vomiting. 7. Report any pain in the calves, shortness of breath, or rapid heartbeat. 8. Follow-up in the office as directed. 9. If you were prescribed antibiotics, do not stop them without talking to your provider. Referrals: Odette Mccarthy CNP [Advanced Practice Nurse] - 09/30/18 2:15 pm NONE,PCP [Primary Care Provider] - Prescriptions: Docusate Sodium [Colace] 100 mg PO BID PRN #30 capsule PRN Reason: Contstipation Ibuprofen 800 mg PO Q8H PRN #30 tablet PRN Reason: Postsurgical pain Polyethylene Glycol 3350 [MiraLAX Powder Bulk 17.9 Oz] 1 scoop PO DAILY 30 Days #510 gm OxyCODONE/APAP 5/325 [Percocet 5/325 MG] 1 each PO Q6HR PRN 7 Days #28 tablet PRN Reason: Pain Ondansetron ODT [Zofran ODT] 4 mg SL Q4HR PRN #15 tab.rapdis PRN Reason: Postsurgical nausea
[2018-09-21 10:39] VITALS: BP 121/77
== END 2018-09-21 11:25 | disposition home or self-care (01) ==
LOC: EMEROOARM 00:20 → 3ANU 00:20
PROVIDERS: ADMIT Surgery; ATTEND Surgery